=== PATIENT | male | born 1970 | race Caucasian/White ===

== ENCOUNTER 2018-09-26 23:42 | Inpatient (IN) ==
[2018-09-26] MEDS ORDERED: Piperacillin/Tazobactam 3.375 GM in Water for inj. (sterile) 20 ML 20 ML IVP ONE (23:56)
[2018-09-27 00:34] LABS: Basophils # 0.1 K/mcL (0.0-0.2); Basophils % 0.3 %; Eosinophils # 0.3 K/mcL (0.0-0.6); Eosinophils % 1.6 %; Hemoglobin 12.9 g/dL (12.9-16.9); Immature Granulocytes % 0.4 % (0-4); Lymphocytes % 12.8 %; Mean Corpuscular HGB Conc 33.9 g/dL (31.6-35.5); Mean Corpuscular Hemoglobin 30.8 pg (28.0-33.3); Mean Corpuscular Volume 90.7 fL (83.0-100.0); Mean Platelet Volume 9.6 fL (9.4-12.4); Monocytes # 0.9 K/mcL (0.0-1.3); Monocytes % 5.6 %; Neutrophils # 12.6 K/mcL (1.6-8.9); Platelet Count 304 K/mcL (140-400); Red Blood Count 4.19 M/mcL (4.19-5.50); Red Cell Distribution Width 12.6 % (11.5-14.5); Segmented Neutrophils % 79.3 %; White Blood Count 15.9 K/mcL (4.3-11.1)
--- NOTE | 2018-09-27 00:36 | Emergency Department Note ---
Disposition Clinical Impression: Toe infection Fever Qualifiers: Fever type: unspecified Qualified Code(s): R50.9 - Fever, unspecified Disposition: Admitted As Inpatient Condition: Fair Forms: ED Satisfaction Letter Time of Disposition: 00:38 General Adult HPI - General Chief complaint: ED Extremity Injury, Lower Stated complaint: MRSA Time Seen by Provider: 09/26/18 23:43 Source: patient, EMS Mode of arrival: EMS Limitations: no limitations Nursing Notes Reviewed: Yes Vital Signs Reviewed: Yes - History of Present Illness HPI Narrative: 48-year-old male in no significant past medical history presenting to the emergency department chief complaint of toe infection. Patient states for the past 3 weeks he has had worsening second digit on the left foot infection. He first noticed it and covered it with antibiotic cream but it progressively got worse and more swollen and more painful. Patient states today he started having chills and not feeling well and that is what brought him in. Denies any history of diabetes or previous skin infection. 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 Denies any trauma to the area. Pain Scale: 8 All systems ED: reviewed and negative except as stated. Constitutional: Reports: fever, chills Eyes: Reports: as per HPI ENT ED: Reports: as per HPI Cardiovascular: Denies: chest pain Respiratory: Denies: dyspnea Gastrointestinal: Denies: abdominal pain Genitourinary: Reports: as per HPI Musculoskeletal: Reports: as per HPI Integumentary: Reports: as per HPI Neurological: Reports: as per HPI Psychiatric: Reports: as per HPI Endocrine: Reports: as per HPI Hematological/Lymphatic: Reports: as per HPI Allergic/Immunologic: Reports: as per HPI Past Medical History - Past Medical History Attestation: Yes The following information was validated with the patient. Medical history: Reports: no medical history Psychiatric history: Reports: no psych history - Social History Smoking Status: Never smoker Smokeless Tobacco Status: No Alcohol use: Reports: none Drug use: Reports: none Physical Exam - General Limitations: no limitations General appearance: alert, in no apparent distress - Head Head exam: atraumatic, normocephalic, normal inspection - Eye Eye exam: Absent: scleral icterus - ENT ENT exam: mucous membranes moist - Neck Neck exam: Present: full ROM - Chest Chest inspection: Present: symmetric chest wall rise - Respiratory Respiratory exam: Present: normal lung sounds bilaterally. Absent: respiratory distress, wheezes - Cardiovascular Cardiovascular exam: Present: regular rate, normal rhythm, normal heart sounds - Abdominal Exam Abdominal exam: Present: soft, Non-Tender. Absent: distention, guarding, rebound - Extremities Exam Extremities exam: Present: other (Left second toe swollen, red tender to touch. Superficial ulcerations to the dorsal aspect and the medial aspect of the toe. No crepitus) - Neurological Exam Neurological exam: Present: alert, oriented X3 - Psychiatric Psychiatric exam: Present: normal affect - Skin Skin exam: Present: warm Course Course Narrative: 48-year-old male presenting for a toe infection. In the room is alert and oriented 3. He is febrile but hemodynamically stable. Physical exam is significant for a left second toe that is red, swollen, tender to touch with superficial ulcerations. Concern for sepsis due to this infectious etiology. At this time will obtain laboratory analysis including lactic acid, blood cultures along with an x-ray of the foot. Disposition will be admission pending laboratory analysis. Patient agrees with this plan. We will also start him with fluid resuscitation and antibiotics. - Reevaluation(s) Reevaluation #1: Patient with leukocytosis. All other labs pending at this time. We will plan to send the patient out to the night team Dr. Montez. Patient remains alert and oriented 3 and hemodynamically stable. Vital Signs Temperature 100.6 F H 09/26/18 23:45 Pulse Rate 88 09/26/18 23:45 Respiratory Rate 18 09/26/18 23:45 Blood Pressure 176/96 09/26/18 23:45 O2 Sat by Pulse Oximetry 99 09/26/18 23:45 Temperature 100.6 F H 09/26/18 23:45 Pulse Rate 88 09/26/18 23:45 Respiratory Rate 18 09/26/18 23:45 Blood Pressure 176/96 09/26/18 23:45 O2 Sat by Pulse Oximetry 99 09/26/18 23:45 Oxygen Delivery Oxygen Delivery Room Air Medical Decision Making - Lab Data Result diagrams: 09/27/18 00:14 09/27/18 00:14 Attestation Statement - Attestation Attestation: I, Marcos Montez, examined this patient and my medical decision-making was reviewed with the [employer]/PA/Advanced Practice Nurse/Resident Physician. I agree with the documented findings, disposition and treatment plan as described except to the extent set forth below. 48-year-old male presents presents emergency Department with concerns of infection to the left second toe. Patient states he developed a blister which burst, he had been using antibacterial ointment on it for almost a week, and improved mildly and and then worsened quickly. 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 Patient denies fever, chills however he has generalized malaise. The left foot is significantly tender to palpation, the left second toe is erythematous with blister formation and purulent drainage. There is no streaking proximally on the foot. Patient is afebrile. He will be admitted to the hospital for further care and evaluation with IV antibiotics. He will require podiatry consult for further care and evaluation.
--- NOTE | 2018-09-27 00:51 | Emergency Department Note ---
Disposition Clinical Impression: Septic joint Qualifiers: Septic arthritis location: foot Septic arthritis organism: due to unspecified organism Laterality: left Qualified Code(s): M00.9 - Pyogenic arthritis, unspecified Disposition: Admitted As Inpatient Condition: Good Referrals: NONE,PCP [Primary Care Provider] - Forms: ED Satisfaction Letter Time of Disposition: 00:51 General Adult HPI - General Chief complaint: ED Extremity Injury, Lower Stated complaint: MRSA Time Seen by Provider: 09/26/18 23:43 Source: patient, EMS Mode of arrival: EMS Limitations: no limitations - History of Present Illness Pain Scale: 8 - Related Data Allergies Allergy/AdvReac Type Severity Reaction Status Date / Time No Known Allergies Allergy Verified 09/27/18 01:09 Constitutional: Reports: fever, chills Eyes: Reports: as per HPI ENT ED: Reports: as per HPI Cardiovascular: Denies: chest pain Respiratory: Denies: dyspnea Gastrointestinal: Denies: abdominal pain Genitourinary: Reports: as per HPI Musculoskeletal: Reports: as per HPI Integumentary: Reports: as per HPI Neurological: Reports: as per HPI Psychiatric: Reports: as per HPI Endocrine: Reports: as per HPI Hematological/Lymphatic: Reports: as per HPI Allergic/Immunologic: Reports: as per HPI Past Medical History - Past Medical History Medical history: Reports: no medical history Psychiatric history: Reports: no psych history - Social History Smoking Status: Never smoker Smokeless Tobacco Status: No Alcohol use: Reports: none Drug use: Reports: none Physical Exam - General Limitations: no limitations General appearance: alert, in no apparent distress Course - Reevaluation(s) Reevaluation #1: accepted sign out from Dr. Marcos davis. Plan is to followu on XR and then admit to medicine for Toe cellulitis Time: 00:50 - Consultations Consultation #1: discusssed case with Dr. Wade and he would like to have an MRI ordered and will see patinet in consult with admission to medicine Time: 01:53 Consultation #2: Resident Dr. Arvizu spoke with Dr. vázquez and he has been accepted to medicine Time: 02:15 Vital Signs Temperature 100.6 F H 09/26/18 23:45 Pulse Rate 88 09/26/18 23:45 Respiratory Rate 18 09/26/18 23:45 Blood Pressure 176/96 09/26/18 23:45 O2 Sat by Pulse Oximetry 99 09/26/18 23:45 Temperature 100.6 F H 09/26/18 23:45 Pulse Rate 93 09/27/18 01:46 Respiratory Rate 18 09/27/18 01:46 Blood Pressure 149/86 09/27/18 01:46 O2 Sat by Pulse Oximetry 98 09/27/18 01:46 Oxygen Delivery Oxygen Delivery Room Air Medical Decision Making - Lab Data Result diagrams: 09/27/18 00:14 09/27/18 00:14 Lab Results 09/27/18 09/27/18 09/27/18 Range/Units 00:14 00:14 00:14 WBC 15.9 H (4.3-11.1) K/mcL RBC 4.19 (4.19-5.50) M/mcL Hgb 12.9 (12.9-16.9) g/dL Hct 38.0 (37.5-50.1) % MCV 90.7 (83.0-100.0) fL MCH 30.8 (28.0-33.3) pg MCHC 33.9 (31.6-35.5) g/dL RDW 12.6 (11.5-14.5) % Plt Count 304 (140-400) K/mcL MPV 9.6 (9.4-12.4) fL Immature Gran % 0.4 (0-4) % Seg Neutrophils % 79.3 % Lymphocytes % 12.8 % Monocytes % 5.6 % Eosinophils % 1.6 % Basophils % 0.3 % Neutrophils # 12.6 H (1.6-8.9) K/mcL Lymphocytes # 2.0 (0.6-4.6) K/mcL Monocytes # 0.9 (0.0-1.3) K/mcL Eosinophils # 0.3 (0.0-0.6) K/mcL Basophils # 0.1 (0.0-0.2) K/mcL Sodium 136 (136-145) mEq/L Potassium 3.9 (3.5-5.1) mEq/L Chloride 101 (98-107) mEq/L Carbon Dioxide 25 (23-29) mEq/L BUN 14 (6-20) mg/dL Creatinine 0.78 (0.70-1.30) mg/dL Est GFR ( Amer) > 60 (> 60) Est GFR (Non-Af Amer) > 60 (> 60) BUN/Creatinine Ratio 18 (6-26) Glucose 178 H (70-105) mg/dL Calculated Osmolality 287 (280-300) Lactic Acid 2.4 H (0.5-2.2) mmol/L Calcium 9.1 (8.6-10.3) mg/dL Total Bilirubin 0.2 L (0.3-1.0) mg/dL Direct Bilirubin 0.0 (0.0-0.2) mg/dL Indirect Bilirubin 0.2 (0.0-1.2) mg/dL AST 15 (13-39) Units/L ALT 10 (7-52) Units/L Alkaline Phosphatase 97 (34-104) Units/L Serum Total Protein 6.9 (6.4-8.9) g/dL Albumin 4.1 (3.5-5.7) g/dL Globulin 2.8 (2.4-3.5) g/dL Albumin/Globulin Ratio 1.5 (1.1-2.2)
[2018-09-27 00:58] LABS: Alanine Aminotransferase 10 Units/L (7-52); Albumin 4.1 g/dL (3.5-5.7); Albumin/Globulin Ratio 1.5 (1.1-2.2); Alkaline Phosphatase 97 Units/L (34-104); Aspartate Amino Transferase 15 Units/L (13-39); BUN/Creatinine Ratio 18 (6-26); Bilirubin,Indirect 0.2 mg/dL (0.0-1.2); Bilirubin,Total 0.2 mg/dL (0.3-1.0); Blood Urea Nitrogen 14 mg/dL (6-20); Calcium 9.1 mg/dL (8.6-10.3); Carbon Dioxide 25 mEq/L (23-29); Chloride 101 mEq/L (98-107); Globulin 2.8 g/dL (2.4-3.5); Glucose 178 mg/dL (70-105); Osmolality,Calculated 287 (280-300); Potassium 3.9 mEq/L (3.5-5.1); Sodium 136 mEq/L (136-145); Total Protein 6.9 g/dL (6.4-8.9); eGFR For African Americans > 60 (> 60); eGFR For Non-African Americans > 60 (> 60)
[2018-09-27] MEDS: 0.9 % Sodium Chloride 1,000 ML IVC SCH ×3 (01:16→09:22)
[2018-09-27] MEDS ORDERED: *HR* FentaNYL (PF) 100 MCG/2 ML VIAL IVP ONE (01:52)
[2018-09-27] MEDS ORDERED: Naloxone 0.4 MG/ML INJ IVP PRN (06:45)
[2018-09-27] MEDS ORDERED: 0.9 % Sodium Chloride 1,000 ML IVC SCH (06:45)
--- NOTE | 2018-09-27 07:54 | Internal Med History&Physical ---
Date of Encounter: 09/27/18 Time of Encounter: 06:10 Internal Medicine - H&P: HPI Chief complaint: Septic joint Admitted From: Emergency Dept History of present illness: Mr. Zapien is a 48 year old male Patient presented to the ER with pain in his left foot for 3 weeks. 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 He states that he developed a blister on the 2nd toe of his left foot that he was treating at home with an ointment. He says that it progressively worsened and became swollen and painful. He has never had symptoms like this before. He came to the ER for further evaluation. In the ER his initial vital signs revealed a temperature of 100.6. CBC showed a white count of 15.9. BMP demonstrated a blood sugar or 178. Initial lactic acid was 2.4. Foot x-ray was ordered and revealled possible septic joint but no osseous destruction suggesting osteomyelitis. Blood cultures were drawn, and patient was started on vancomycin and zosyn. Podiatry was called and will see the patient in the morning. Recommended MRI of the foot. Patient was admitted to the hospital for further management. Upon my evaluation patient is resting comfortably in the hospital room in no acute distress. He denies chest pain, abdominal pain and diarrhea. He has had some nausea and vomiting but not since arrival. He denies history of diabetes. He states that his father had from cirrhosis of the liver, and his moter had a brain tumor. Diabetes does run in his family. He is a full code. Past Med Surg Social Fam HX - Past Medical History Medical history: no medical history Additional medical history: back pain Psychiatric history: no psych history - Past Surgical History Surgical History: cholecystectomy, tonsillectomy Additional surgical history: lumbar discectomy (2005), broken toes - Social History Smoking Status: Current every day smoker Packs per day: half pack Smokeless Tobacco Status: No Alcohol use: none Drug use: none - Family History Father Living Status: Age at : 36 Cause of : cirrhosis Mother Living Status: Age at : 53 Cause of : brain ancer Hx Family Cancer: Yes (brain cancer) Internal Medicine - H&P: Meds 3 Allergy/AdvReac Type Severity Reaction Status Date / Time No Known Allergies Allergy Verified 09/27/18 01:09 All Systems PM: A 10-system review of systems was performed and is negative for pertinent findings except as documented above in the HPI. - Constitutional Vitals: Temp Pulse Resp BP Pulse Ox 98.9 F 78 16 153/86 98 09/27/18 06:59 09/27/18 06:59 09/27/18 06:59 09/27/18 06:59 09/27/18 06:59 General appearance: Present: cooperative, A&O X 3, pleasant, no acute distress, answers questions appropriately Exam: - - Head Head exam: Present: normal inspection - Eye Eye exam: Present: EOMI, normal appearance - Respiratory Respiratory exam: Present: CTAB. Absent: rales, respiratory distress, rhonchi, wheezes - Cardiovascular Cardiovascular exam: Present: RRR. Absent: diastolic murmur, systolic murmur - GI/Abdominal GI/Abdominal exam: Present: normal bowel sounds, soft. Absent: tenderness - Extremities Exam Extremities exam: Present: pedal edema, warm, radial pulses palpable and symmetrical. Absent: tenderness Additional comments: Left foot swollen to mid lower leg. 2nd toe swollen with 1cm ulceration on dorsal aspect. Toe purple in color. Decreased sensation with palpation. dust box tender to mid-foot - Neurological Exam Neurological exam: Present: no focal deficits, strengths equal and symetr throughout. Absent: motor sensory deficit, facial droop, speech deficit - Skin Skin exam: Present: dry, normal color, warm Internal Med - H&P Results - Labs CBC & Chem 7: 09/27/18 00:14 09/27/18 00:14 Labs: Short CBC 09/27/18 Range/Units 00:14 WBC 15.9 H (4.3-11.1) K/mcL Hgb 12.9 (12.9-16.9) g/dL Hct 38.0 (37.5-50.1) % Plt Count 304 (140-400) K/mcL Neutrophils # 12.6 H (1.6-8.9) K/mcL BMP 09/27/18 00:14 Sodium 136 Potassium 3.9 Chloride 101 Carbon Dioxide 25 BUN 14 Creatinine 0.78 Glucose 178 H Calcium 9.1 Liver Function 09/27/18 Range/Units 00:14 Total Bilirubin 0.2 L (0.3-1.0) mg/dL Direct Bilirubin 0.0 (0.0-0.2) mg/dL AST 15 (13-39) Units/L ALT 10 (7-52) Units/L Alkaline Phosphatase 97 (34-104) Units/L Albumin 4.1 (3.5-5.7) g/dL - Impressions ITS Impressions Foot X-Ray 09/27/18 23:57 IMPRESSION: 2nd toe soft tissue swelling. No underlying soft tissue gas, radiopaque foreign body, or osseous destruction to suggest osteomyelitis however, there is asymmetric widening of the DIP joint compared with other joints, raising concern for septic joint. D/ / Lee Devlin / Lee Devlin Interpreting Provider: Lee Devlin - Assessment and Plan (1) Septic joint Current Visit: Yes Status: Acute Assessment and plan: Left 2nd toe showed widening at the DIP joint on x-ray. Podiatry consulted from the ER, will see in the morning. Requested MRI. Patient initially ferile with temp of 100.6, and had a white count of 15.9. Lactic acid also initially elevated at 2.4. Lactic acid improved with IV fluids, patient started on antibiotics in the ER. MRI ordered from ER, follow up results Follow up podiatry recommendations Continue IV antibiotics Follow up culture results. Qualifiers: Septic arthritis location: foot Septic arthritis organism: due to unspecified organism Laterality: left Qualified Code(s): M00.9 - Pyogenic arthritis, unspecified (2) Hyperglycemia Current Visit: Yes Status: Acute Assessment and plan: Elevated sugar on initial labs. Patient denies history of diabetes. A1c in the morning (3) DVT prophylaxis Current Visit: Yes Status: Acute Assessment and plan: SCDs - Time Spent With Patient Total time spent is greater than 50% in coordination of care (as documented) at patient's floor/unit and/or counseling patient: Greater than 35 minutes
--- NOTE | 2018-09-27 09:18 | Podiatry Consult Note ---
Date of Encounter: 09/27/18 Time of Encounter: 09:15 Assessment and Plan (1) Infected blister of second toe of left foot Current visit: Yes Status: Acute Patient evaluated and treated. He has a left 2nd toe infection. MRI completed of the left foot today. Will wait for radiology read to see if there is evidence of osteomyelitis. Given the amount of soft tissue infection, he will need at least an I&D and possible amputation of the digit. ESR and CRP ordered. Will plan for I&D tomorrow for infection source control. Patient was made NPO at midnight to night. Risks, benefits, and expected post operative course reviewed for the procedure. He will sign consent prior to the procedure as he would like to think about his surgical options today. Continue broad spectrum IV antibiotics for now. Qualifiers: Qualified Code(s): S90.425A - Blister (nonthermal), left lesser toe(s), initial encounter; L08.9 - Local infection of the skin and subcutaneous tissue, unspecified History of Present Illness Chief complaint: left 1st toe wound infection HPI: Mr. Zapien is a 48 year old male admitted for left 2nd toe infection. He reports 4 weeks ago he developed a blister from his work shoes. He walks to work which causes strain on his feet. He treated the blister with triple antibiotic and bandage. The wound worsened and the toe turned red and swollen. He reported fevers and chills when he came to the hospital. he reports sharp pain to the toe. Past Med Surg Social Fam HX - Past Medical History Medical history: no medical history Additional medical history: back pain Psychiatric history: no psych history - Past Surgical History Surgical History: cholecystectomy, tonsillectomy Additional surgical history: lumbar discectomy (2005), broken toes - Social History Smoking Status: Current every day smoker Packs per day: half pack Smokeless Tobacco Status: No Alcohol use: none Drug use: none - Family History Father Living Status: Age at : 36 Cause of : cirrhosis Mother Living Status: Age at : 53 Cause of : brain ancer Hx Family Cancer: Yes (brain cancer) Medications and Allergies Allergy/AdvReac Type Severity Reaction Status Date / Time No Known Allergies Allergy Verified 09/27/18 01:09 All Systems Reviewed: The remainder of the systems were reviewed and are negative Physical Exam - Constitutional Vitals: Temp Pulse Resp BP Pulse Ox 98.9 F 78 16 153/86 98 09/27/18 06:59 09/27/18 06:59 09/27/18 06:59 09/27/18 06:59 09/27/18 06:59 Exam: Alert, oriented x3, mild distress Vascular: pulses palpable bilateral foot. Capillary refill brisk to all toes. Skin temperature warm to touch left 2nd toe. Pedal hair present. Dermatology: left 2nd toe ulcer 1cm diameter at medial aspect of DIPJ. Erythema and edema of entire digits. Mild drainage from wound. Musculoskeletal: Tenderness with palpation left 2nd toe. No pain with compression of calf. Neuro: sensations intact to light touch bilateral lower extremity. Results - Labs Result Diagrams: 09/27/18 00:14 09/27/18 00:14 Labs: Abnormal lab results WBC 15.9 K/mcL (4.3-11.1) H 09/27/18 00:14 12.6 K/mcL (1.6-8.9) H 09/27/18 00:14 Glucose 178 mg/dL (70-105) H 09/27/18 00:14 Lactic Acid 2.4 mmol/L (0.5-2.2) H 09/27/18 00:14 0.2 mg/dL (0.3-1.0) L 09/27/18 00:14 H & H 09/27/18 Range/Units 00:14 Hgb 12.9 (12.9-16.9) g/dL Hct 38.0 (37.5-50.1) % All other labs normal. Consult Discharge Plan - Plan Referrals: NONE,PCP [Primary Care Provider] -
[2018-09-27] MEDS: Piperacillin/Tazobactam 3.375 GM in 0.9 % Sodium Chloride Mini Bag 100 ML IVPB SCH ×2 (09:24→16:43)
[2018-09-27 10:32] LABS: Estimated Average Glucose 134 mg/dl; Hemoglobin A1C 6.3 %
[2018-09-27 10:43] LABS: Prothrombin Time 11.2 Seconds (9.4-12.1)
[2018-09-27 13:28] LABS: Bilirubin,Urine Negative (Negative); Blood,Urine Negative (Negative); Clarity,Urine Clear (Clear); Color,Urine Yellow (Yellow); Glucose,Urine (UA) Normal (Normal); Ketones,Urine Negative (Negative); Leukocyte Esterase,Urine Negative (Negative); Nitrite,Urine Negative (Negative); PH,Urine 6.5 pH Units (5.0-8.0); Protein,Urine Negative (Neg-Trace); Specific Gravity,Urine 1.017 (1.010-1.025); Urobilinogen,Urine Normal (Normal)
--- NOTE | 2018-09-27 15:38 | Event Note ---
Date of Encounter: 09/27/18 Time of Encounter: 15:32 48 y/o male with no significant PMH presented to [facility] on 09/27/18 with complaints of left foot second digit infection. He was found to have possible osteomyelitis and was hospitalized for IV ATB and podiatry evaluation. Patient was seen earlier today by nocturnal hospitalist. Seen and examined at bedside by myself. Tired and drowsy at time of my exam. He does have some left foot discomfort. He is aware of surgical intervention per podiatry. Osteomyelitis/septic arthritis: To left foot second digit per MRI. Continue IV Vanco and Zosyn. NPO at midnight. Podiatry planing at least I&D and possible amputation. DVT prophylaxis: Heparin
[2018-09-28] MEDS: Piperacillin/Tazobactam 3.375 GM in 0.9 % Sodium Chloride Mini Bag 100 ML IVPB SCH ×3 (01:40→17:43)
--- NOTE | 2018-09-28 07:23 | Podiatry Progress Note ---
Date of Encounter: 09/28/18 Time of Encounter: 07:20 - Assessment and Plan (1) Infected blister of second toe of left foot Current Visit: Yes Status: Acute Patient evaluated and treated. He has a left 2nd toe infection. MRI reviewed with the patient which shows cellulitis and marrow edema that likely represents osteomyelitis of the left 2nd toe middle and distal phalanges. Given the amount of soft tissue infection and concern for osteomyelitis, he will need at least an I&D and possible amputation of the digit. We discussed treatment options for suspected osteomyelitis including bone culture with course of IV antibiotics vs toe amputation. He is agreeable to toe amputation if needed. Surgical consent signed. Risks, benefits, and expected post operative course reviewed for the procedure. Continue broad spectrum IV antibiotics for now and will take cultures in the OR this AM. Qualifiers: Encounter type: subsequent encounter Qualified Code(s): S90.425D - Blister (nonthermal), left lesser toe(s), subsequent encounter; L08.9 - Local infection of the skin and subcutaneous tissue, unspecified Subjective Principal diagnosis: left 2nd toe infection Interval history: Patient feeling better today. Plans for I&D left 2nd toe with possible amputation of digit. He is NPO. Objective - Vital Signs Vital Signs: Vital Signs Temp Pulse Resp BP Pulse Ox 09/28/18 03:44 98.1 F 71 17 153/93 95 09/28/18 00:15 98.4 F 75 17 136/80 95 09/27/18 19:07 98.7 F 78 17 158/91 100 09/27/18 15:51 97.6 F 70 17 133/83 94 09/27/18 11:10 98.3 F 68 18 128/80 95 Intake and Output 09/27/18 09/27/18 09/28/18 15:59 23:59 07:59 Intake Total 1790 / 3160 100 / 3160 Output Total 700 / 700 Balance 1090 / 2460 100 / 2460 Intake: IV Fluids 1550 / 2920 100 / 2920 0.9 % Sodium Chloride 1,000 ML 1200 / 2200 @ 125 mls/hr IVC .Q8H [facility] Rx#: [id number] Zosyn 3.375 GM In 0.9 % Sodium 100 / 200 100 / 200 Chloride (Mini-Bag +) 100 ML @ 25 mls/hr IVPB Q8H [facility] Rx#: [id number] Vancocin 1,500 MG In 0.9 % 250 / 250 Sodium Chloride 250 ML @ 167 mls/hr IVPB Q12H [facility] Rx#: [id number] Oral 240 / 240 Output: Urine 700 / 700 Other: Meal Breakfast Percent of Meal Consumed 100% # Voids 1 1 Weight 96.615 kg Blood Glucose* 131 Patient Weight 09/28/18 23:59 Weight 96.615 kg - Exam Exam: Alert, oriented x3, mild distress Vascular: pulses palpable bilateral foot. Capillary refill brisk to all toes. Skin temperature warm to touch left 2nd toe. Pedal hair present. Dermatology: left 2nd toe ulcer 1cm diameter at medial aspect of DIPJ. Erythema and edema of entire digit. Mild drainage from wound. Musculoskeletal: Tenderness with palpation left 2nd toe. No pain with compression of calf. Neuro: sensations intact to light touch bilateral lower extremity. - Lab Result Diagrams: 09/27/18 00:14 09/27/18 00:14 Labs: Abnormal lab results WBC 15.9 K/mcL (4.3-11.1) H 09/27/18 00:14 12.6 K/mcL (1.6-8.9) H 09/27/18 00:14 ESR 33 mm/hr (0-10) H 09/27/18 09:38 Glucose 178 mg/dL (70-105) H 09/27/18 00:14 6.3 % (-5.6) H 09/27/18 09:38 Lactic Acid 2.4 mmol/L (0.5-2.2) H 09/27/18 00:14 0.2 mg/dL (0.3-1.0) L 09/27/18 00:14 69 mg/L (Less than 10) H 09/27/18 09:38 Microbiology, Last 48 Hours 09/27/18 00:45 Blood Culture - Preliminary Peripheral Venipuncture Culture is incubating and being continuously monitored for growth. Final report to follow. 09/27/18 00:14 Blood Culture - Preliminary Peripheral Venipuncture Culture is incubating and being continuously monitored for growth. Final report to follow. Consult Discharge Plan - Plan Referrals: NONE,PCP [Primary Care Provider] -
[2018-09-28] MEDS ORDERED: Famotidine 20 MG/2 ML VIAL IVP ONE (09:56)
[2018-09-28] MEDS ORDERED: Albuterol 2.5 MG/3 ML NEBULIZER IH ONE (09:57)
[2018-09-28] MEDS ORDERED: Acetaminophen IV 1,000 MG/100 ML INFUS..BTL IVPB ONE (09:57)
[2018-09-28] MEDS ORDERED: Ringers Solution, Lactated 1,000 ML IVC SCH (10:00)
--- NOTE | 2018-09-28 10:00 | Anesthesia Evaluation PreOp ---
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 HX Other Medical History: Denies Any Significant HX Anesthesia History: No Prior Anesthetic Complications Alcohol Use: none Drug use: none Medications and Allergies Allergy/AdvReac Type Severity Reaction Status Date / Time No Known Allergies Allergy Verified 09/27/18 01:09 - Meds/Allergy Pre-op Review Medications Reviewed: Yes Allergies Reviewed: Yes Beta Blockers on Current Med List: No Anesthesia Results - Labs 09/27/18 00:14 09/27/18 00:14 Anesthesia Exam O2 Sat Weight 96.615 kg Weight 94.6 kg O2 Sat by Pulse Oximetry 97 O2 Sat by Pulse Oximetry 95 O2 Sat by Pulse Oximetry 95 O2 Sat by Pulse Oximetry 100 O2 Sat by Pulse Oximetry 94 O2 Sat by Pulse Oximetry 95 Vital Signs Temp Pulse Resp BP Pulse Ox 100.6 F H 88 18 176/96 99 09/26/18 23:45 09/26/18 23:45 09/26/18 23:45 09/26/18 23:45 09/26/18 23:45 Height: 5'10 Weight: 213 lbs NPO (# of Hours): MN Pain Scale: 0 - HEENT Pupil (Motor): Pupils equal, EOMI Mallampati: II Oral Opening: Greater than 3 - SENIOR TECHNICAL EDITOR LOC: Oriented SENIOR TECHNICAL EDITOR Sensory: Normal: RUE, LUE, RLE, LLE, Face - Cardiac Rhythm: Regular Murmur: None JVD: No Carotid Bruit: No - Pulmonary Breath Sounds: bilateral Clear Respiratory Effort: Symmetrical Anesthesia Assess/Plan ASA Score: 2 Level of consciousness: Cooperative, Oriented Anesthetic Plan: MAC Reason for No Neuroaxial/Regional Block: Patient refusal Autologous Blood: No Monitoring Plan: Standard Monitors Recovery Plan: PACU (Discussed MAC, possible GA, agrees to proceed)
[2018-09-28] MEDS ORDERED: *HR* Midazolam HCl 2 MG/2 ML VIAL ONE (10:14)
[2018-09-28] MEDS ORDERED: *HR* FentaNYL (PF) 100 MCG/2 ML VIAL ONE (10:14)
[2018-09-28] MEDS ORDERED: *HR* Propofol 200 MG/20 ML VIAL IVP ONE (10:15)
[2018-09-28] MEDS ORDERED: Lidocaine -MPF 2% 2 ML VIAL ONE (10:15)
[2018-09-28] MEDS ORDERED: Lidocaine 1% 20 ML MDV ONE (10:51)
[2018-09-28] MEDS ORDERED: Propofol 500 MG/50 ML INFUS..BTL ONE (11:32)
--- NOTE | 2018-09-28 11:51 | Anesthesia Evaluation Post Op ---
Date of Encounter: 09/28/18 Time of Encounter: 12:00 - Vital Signs Vital Signs: Vital Signs/O2 Sat/Glucose, Most Current Resp BP Pulse Ox 09/28/18 10:12 16 121/82 95 - Lungs Lungs: Clear Ascult./Percussion - Airway Airway: Non-obstructed - Cardiovascular Regular Rate - Mental Status Mental Status: Alert & Oriented, Answers Appropriately - Pain Pain Scale: 0 - Nausea Vomiting Nausea Vomiting: Not Present - Hydration Hydration: NPO - Discharge PostOp Status: Transfer Patient to floor
--- NOTE | 2018-09-28 12:01 | Orthopedic Operative Note ---
Date of procedure: 09/28/18 Pre-op diagnosis: left 2nd toe infection, osteomyelitis Post-op diagnosis: same Procedure: 09/28/18 11:50 1. Left 2nd toe incision and drainage below fascia 2. Left partial 2nd toe amputation at proximal interphalangeal joint Implants: None Complications: None Anesthesia: MAC, local Surgeon: Dhruv Mccloud Was there an digital sales assistant present: No Estimated blood loss (cc): 1 Tourniquet Time (Minutes): 0 Specimen: Left 2nd toe wound culture, proximal phalanx bone culture, toe to pathology Condition: stable Disposition: floor Procedure in Detail: 09/28/18 11:52 INDICATIONS AND CONSENT Jaswant Zapien is a 48-year-old male who initially presented with left second toe wound infection that started as a non healing blister. MRI showed evidence of osteomyelitis at the middle and distal phalanx of the toe. Given his clinical picture of localized infection, nonviable soft tissue, and MRI evidence of bone infection, surgical intervention was warranted for infection source control. This would include incision and drainage of all nonviable soft tissue and bone, with possible partial second toe amputation. We discussed the option for bone culture with course of IV antibiotics vs amputation, and he elected to proceed with amputation if needed. We discussed the above procedures in detail. This included a discussion on the indications, contraindications, and possible complications including but not limited to: infection, non-healing wound, pain, swelling, bleeding, blood clots, heart complications, nerve injury, tendon injury, vascular injury, loss of limb, loss of life, and need for further surgery. We also reviewed the expected post operative course, including a discussion on the partial-weightbearing status after this procedure. He related understanding of our discussion regarding this surgery. All questions were answered to his satisfaction, and a proper written informed consent was obtained, signed, and placed in the chart. No guarantees were given, stated or implied, as to the outcome of this procedure. PROCEDURE IN DETAIL The patient was seen in the pre-operative holding area by Anesthesia, where he was consented for MAC with local block. The patient was then brought back to the operative suite and placed on the operating room table in the supine position. A sign-in was performed. MAC was then started per Anesthesia protocol. A well- padded pneumatic left ankle tourniquet was then placed but was not used for the procedure. Next, the left lower leg was scrubbed, prepped, and draped in the usual aseptic manner. A [place] Time-Out was performed, and all parties in the room agreed. A total of 5 mL of 1% lidocaine plain was injected to the left second toe. A rongeur and 15 blade was then used to sharply debride all nonviable soft tissue at the second toe. A wound culture was taken from the toe. After debridement of all nonviable soft tissue, it was determined that the soft tissue deficit would not allow for adequate healing over the exposed bone, especially given the fact that there was concern for underlying bone infection. It was determined that a partial second toe amputation was warranted. A 15 blade was then used to disarticulate the left second toe at the proximal interphalangeal joint. The bone at the proximal phalanx appeared hard, viable, and healthy. The wound was then irrigated with 3 L of normal saline using cysto tubing. A clean rongeur was used to obtain a bone culture from the proximal phalanx to confirm adequate resection of infected bone. The specimen was sent to micro. Given the edema and cellulitis at the soft tissue of the second toe stump, it was determined that a staged procedure was appropriate in order to allow the soft tissue infection to resolve prior to any definitive closure. A single 2-0 nylon retention suture was then placed. A total of 5 mL of 0.5% Marcaine plain was then injected to the left forefoot. The wound was then dressed with Xeroform, 4 x 4's, Kerlix roll, and EMILIE wrap. Capillary refill time of the toes on the left foot was also noted to be brisk at this time. A sign-out was performed. The patient tolerated anesthesia and the procedure well, and was transferred to PAC-U with vital signs stable and vascular status intact to the left lower extremity. Needle and sponge counts were correct X 2 at the end of the case. Dr. Dhruv Mccloud was present, scrubbed, and participated in all vital aspects of the procedure. After a brief stay in PAC-U, the patient will be omitted back to the floor for continued monitoring. Will plan for repeat incision and drainage with delayed primary closure once the soft tissue becomes more viable, or a more proximal amputation could be warranted. Will follow up on wound and proximal bone cultures and will tailor antibiotics based on these cultures. 09/28/18 12:02
[2018-09-28] MEDS ORDERED: Naloxone 0.4 MG/ML INJ IVP PRN (12:25)
[2018-09-28 14:52] LABS: Hemoglobin 13.1 g/dL (12.9-16.9); Mean Corpuscular HGB Conc 32.8 g/dL (31.6-35.5); Mean Corpuscular Hemoglobin 30.6 pg (28.0-33.3); Mean Corpuscular Volume 93.5 fL (83.0-100.0); Mean Platelet Volume 9.4 fL (9.4-12.4); Platelet Count 294 K/mcL (140-400); Red Blood Count 4.28 M/mcL (4.19-5.50); Red Cell Distribution Width 12.9 % (11.5-14.5); White Blood Count 11.3 K/mcL (4.3-11.1)
[2018-09-28] MEDS: Ringers Solution, Lactated 1,000 ML IVC SCH (15:08)
[2018-09-28 15:11] LABS: Alanine Aminotransferase 9 Units/L (7-52); Albumin 3.7 g/dL (3.5-5.7); Albumin/Globulin Ratio 1.4 (1.1-2.2); Alkaline Phosphatase 71 Units/L (34-104); Aspartate Amino Transferase 11 Units/L (13-39); BUN/Creatinine Ratio 13 (6-26); Bilirubin,Total 0.4 mg/dL (0.3-1.0); Blood Urea Nitrogen 9 mg/dL (6-20); Calcium 9.1 mg/dL (8.6-10.3); Carbon Dioxide 26 mEq/L (23-29); Chloride 104 mEq/L (98-107); Globulin 2.7 g/dL (2.4-3.5); Glucose 117 mg/dL (70-105); Osmolality,Calculated 284 (280-300); Potassium 4.1 mEq/L (3.5-5.1); Sodium 137 mEq/L (136-145); Total Protein 6.4 g/dL (6.4-8.9); eGFR For African Americans > 60 (> 60); eGFR For Non-African Americans > 60 (> 60)
--- NOTE | 2018-09-28 17:50 | Internal Med Progress Note ---
Hospitalist Progress Note - Encounter Date of Encounter: 09/28/18 Time of Encounter: 17:00 - Subjective Interval History: Patient is assessed at the bedside he is a new patient today. Review of his chart and [id number] assessment have been completed. Patient is just returned from surgical procedure of amputation of the left second PIP joint of the ph alanx. He was originally taken to surgery for I&D of abscess and cellulitis of the second left toe upon further examination during the procedure it was found that he had osteomyelitis and nonviable bone tissue of the PIP joint down to the tip of the toe and amputation was required. Patient is sitting upright in the bed in no acute distress he is however a bit aggravated and verbalizes that he might just "bookit" out of here. He states that he has not been told any information about the procedure he just underwent and he feels that he needs to return to work within the next 4 days. 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 He states that originally the cellulitis occurred due to a blister from walking 7 miles back to the long term house. He continued to become infected and he finally he due to pain and infection he did seek treatment here at the ED. Denies any traumatic event that would have c aused trauma to the toe other than just walking today he underwent amputation at the PIP joint of the second toe there is a single suture holding the balloon clamps there was no closure of the wound amputation flap was not created due to swelling of the soft tissue and infection. Review of the postop procedure note shows that there is plans for a second surgical procedure to close the amputation wound after receiving IV antibiotics and having better results from decreased infection. After explanation of the procedure to the patient that he has experienced and recommendations for him not to leave patient did become less agitated and is willing to stay for 1-2 more days at this point to follow-up with the surgeon - Exam Vitals: Temp Pulse Resp BP Pulse Ox 97.8 F 58 15 132/84 98 09/28/18 16:06 09/28/18 16:06 09/28/18 16:06 09/28/18 16:06 09/28/18 16:06 Exam: General: Patient is alert and oriented 4 in no acute distress sitting upright in the bed [facility] neck is supple negative for any thyroidomegaly or swellings Respiratory: Lungs are clear to auscultation all babin ANP negative for wheeze rales or rhonchi heart: S1-S2 no murmur gallop rub Abdomen: Soft bowel sounds 4 no masses negative for any rebound Extremities: Upper extremities no deformities. Range of motion of upper arms and hands and wrist Lower extremity surgical dressings are in place on the left foot there appears to be a small amount of bright red bleeding from the second plalanx amputation site capillary refill on the great toe is less than 2 seconds toe is warm and pink, patient does not appear to be in significant pain at the current time. Right lower extremity intact, no deformity noted pedal pulse 2+ Neuro: No neurological deficits are noted Psych: Patient is alert and oriented 4 shows no delusional or hallucinatory ideations or features. Thought Processes are linear - Assessment and Plan (1) Septic joint Current Visit: Yes Status: Acute Assessment and Plan: s/p partial amputation of PIP joint 2nd phalanx with surgical dressing in place. Will monitor capillary refill, and for s/s of bleeding q4hr, To leave surgical dressing inpalce until seen per surgeon in AM. May have Utracet 50 mg q8h prn for pain Avoid excessive walking in room, May toilet at the bedside only . Peripheral pulses check every 4 hour dressing check for any signs or symptoms of excessive drainage or bleeding every 4 hours, vital signs postop every 4 hours 24 hours (2) DVT prophylaxis Current Visit: Yes Status: Acute Assessment and Plan: Per protocol continue DVT prophylaxis (3) Hyperglycemia Current Visit: Yes Status: Acute Assessment and Plan: Patient denies any history of hyperglycemia diabetes however blood glucose remains elevated with the highest jane of 178 yesterday today he was 131 and 117 after being nothing by mouth. This is consistent with the hyperglycemia potential for type 2 diabetes hemoglobin A1c was checked and he is mildly elevated at 6.3% we will continue to monitor blood glucose fasting. (4) Amputation toe Current Visit: Yes Status: Acute Assessment and Plan: Status post partial amputation of the left second toe at the PIP joint today. Followed by podiatry with a secondary closure of the flap and amputation in the near future. To continue per Zosyn and vancomycin IVP - Time Spent with Patient Total time spent is greater than 50% in coordination of care (as documented) at patient's floor/unit and/or counseling patient: less than 15 minutes Plan of Care Discussed with: patient Internal Medicine: Result - Labs CBC & Chem 7: 09/28/18 13:42 09/28/18 13:42 Labs: Short CBC 09/28/18 Range/Units 13:42 WBC 11.3 H (4.3-11.1) K/mcL Hgb 13.1 (12.9-16.9) g/dL Hct 40.0 (37.5-50.1) % Plt Count 294 (140-400) K/mcL BMP 09/28/18 13:42 Sodium 137 Potassium 4.1 Chloride 104 Carbon Dioxide 26 BUN 9 Creatinine 0.72 Glucose 117 H Calcium 9.1 Liver Function 09/28/18 Range/Units 13:42 Total Bilirubin 0.4 (0.3-1.0) mg/dL AST 11 L (13-39) Units/L ALT 9 (7-52) Units/L Alkaline Phosphatase 71 (34-104) Units/L Albumin 3.7 (3.5-5.7) g/dL - ABG Interpretation ABG results: PT/INR, D-dimer PT 11.2 Seconds (9.4-12.1) 09/27/18 09:38 - Diagnostic Studies Other Images Additional comments: MRI of the left foot There appears to be a small, shallow, open woundulcer along the medial aspect of the second digit at the level of the DIP joint with apparent sinus tract extending slightly deeper into the soft tissues. Associated subcutaneous edema and skin thickening to the second digit. Findings are compatible with cellulitis. No focal fluid collections noted on this noncontrast exam to suggest abscess. Abnormal bone bowles signal changes involving the second middle and to a lesser extent distal phalanges, along with trace joint effusion to the second DIP joint. Given the soft tissue abnormalities noted above, findings are highly concerning for osteomyelitis and septic arthritis. Borderline diffuse nonspecific subcutaneous edema to the foot, especially dorsally. Mild fatty atrophy and edema to some of the intrinsic musculature of the foot, especially the intraosseous muscle about the second and third and to a lesser extent fourth metatarsals. Findings may be on the basis of denervation changes. Nonspecific myositis not excluded Consult Discharge Plan - Plan Referrals: NONE,PCP [Primary Care Provider] - (1) Septic joint Qualifiers: Septic arthritis location: foot Septic arthritis organism: due to unspecified organism Laterality: left Qualified Code(s): M00.9 - Pyogenic arthritis, unspecified (4) Amputation toe Qualifiers: Laterality: left Qualified Code(s): S98.132A - Complete traumatic amputation of one left lesser toe, initial encounter
[2018-09-28] MEDS ORDERED: Acetaminophen 325 MG TABLET PO PRN (21:42)
[2018-09-28] MEDS: Melatonin 3 MG TABLET PO PRN (21:53)
[2018-09-29] MEDS: Piperacillin/Tazobactam 3.375 GM in 0.9 % Sodium Chloride Mini Bag 100 ML IVPB SCH ×3 (02:04→17:06)
--- NOTE | 2018-09-29 06:17 | Electrocardiograph Report ---
[facility] [employer] 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
[2018-09-29 07:40] LABS: Hematocrit 39.6 % (37.5-50.1); Hemoglobin 12.9 g/dL (12.9-16.9); Mean Corpuscular HGB Conc 32.6 g/dL (31.6-35.5); Mean Corpuscular Hemoglobin 30.3 pg (28.0-33.3); Mean Platelet Volume 9.6 fL (9.4-12.4); Platelet Count 312 K/mcL (140-400); Red Blood Count 4.26 M/mcL (4.19-5.50); Red Cell Distribution Width 12.6 % (11.5-14.5); White Blood Count 10.7 K/mcL (4.3-11.1)
[2018-09-29 07:58] LABS: Alanine Aminotransferase 8 Units/L (7-52); Albumin 3.4 g/dL (3.5-5.7); Albumin/Globulin Ratio 1.2 (1.1-2.2); Alkaline Phosphatase 79 Units/L (34-104); Aspartate Amino Transferase 10 Units/L (13-39); BUN/Creatinine Ratio 21 (6-26); Bilirubin,Total 0.3 mg/dL (0.3-1.0); Blood Urea Nitrogen 18 mg/dL (6-20); Calcium 9.3 mg/dL (8.6-10.3); Carbon Dioxide 28 mEq/L (23-29); Chloride 104 mEq/L (98-107); Globulin 2.9 g/dL (2.4-3.5); Glucose 164 mg/dL (70-105); Osmolality,Calculated 292 (280-300); Potassium 4.1 mEq/L (3.5-5.1); Sodium 138 mEq/L (136-145); Total Protein 6.3 g/dL (6.4-8.9); eGFR For African Americans > 60 (> 60); eGFR For Non-African Americans > 60 (> 60)
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
--- NOTE | 2018-09-29 10:53 | Internal Med Progress Note ---
Hospitalist Progress Note - Encounter Date of Encounter: 09/29/18 Time of Encounter: 10:58 - Subjective Interval History: Patient seen and examined at bedside. Patient states that he feels pretty good today. He denies any pain, fever, chills. - Exam Vitals: Temp Pulse Resp BP Pulse Ox 98.3 F 59 18 112/67 95 09/29/18 06:57 09/29/18 06:57 09/29/18 06:57 09/29/18 06:57 09/29/18 09:56 Exam: Gen.: Alert and oriented 3, no acute distress Heart: Regular rate and rhythm, no murmurs, gallops Musculoskeletal: Left foot has dressing applied, dressing clean dry and intact. No surrounding cellulitis visible at this time outside of the dressing area. - Assessment and Plan (1) Sepsis Current Visit: Yes Status: Resolved Assessment and Plan: Patient initially admitted with fever, leukocytosis, mild lactic acidosis with source secondary to left foot wound resulted in osteomyelitis and septic arthritis. Blood cultures are negative to date, patient currently on broad- spectrum antibiotics. Wound and surgical cultures pending. Blood pressure stable, leukocytosis and fever have resolved. Sepsis appears resolved at this time. (2) Osteomyelitis Current Visit: Yes Status: Acute Assessment and Plan: MRI reveals evidence of osteomyelitis secondary to foot wound. Patient is postop day 1 for incision and drainage and debridement. Discussed with podiatry, patient will need repeat operation in the next day or 2 and may ultimately require amputation. Further surgical management per podiatry. Depending on further surgical findings patient may require long-term IV antibiotics. Await culture results, Consider ID consult after further surgical exploration. (3) Septic joint Current Visit: Yes Status: Acute Assessment and Plan: Secondary to infected foot wound as discussed above. (4) Type 2 diabetes mellitus Current Visit: Yes Status: Acute Assessment and Plan: Newly diagnosed. A1c 6.3, blood sugars mildly elevated. Will institute sliding scale insulin. (5) DVT prophylaxis Current Visit: Yes Status: Acute Assessment and Plan: EPCDs - Time Spent with Patient Total time spent is greater than 50% in coordination of care (as documented) at patient's floor/unit and/or counseling patient: Internal Medicine: Result - Labs CBC & Chem 7: 09/29/18 07:06 09/29/18 07:06 Labs: Short CBC 09/28/18 09/29/18 Range/Units 13:42 07:06 WBC 11.3 H 10.7 (4.3-11.1) K/mcL Hgb 13.1 12.9 (12.9-16.9) g/dL Hct 40.0 39.6 (37.5-50.1) % Plt Count 294 312 (140-400) K/mcL BMP 09/28/18 09/29/18 13:42 07:06 Sodium 137 138 Potassium 4.1 4.1 Chloride 104 104 Carbon Dioxide 26 28 BUN 9 18 Creatinine 0.72 0.84 Glucose 117 H 164 H Calcium 9.1 9.3 Liver Function 09/28/18 09/29/18 Range/Units 13:42 07:06 Total Bilirubin 0.4 0.3 (0.3-1.0) mg/dL AST 11 L 10 L (13-39) Units/L ALT 9 8 (7-52) Units/L Alkaline Phosphatase 71 79 (34-104) Units/L Albumin 3.7 3.4 L (3.5-5.7) g/dL - ABG Interpretation ABG results: PT/INR, D-dimer PT 11.2 Seconds (9.4-12.1) 09/27/18 09:38 - Impressions Impressions Foot MRI 09/27/18 06:30 IMPRESSION: There appears to be a small, shallow, open wound/ulcer along the medial aspect of the 2nd digit at the level of the DIP joint with apparent sinus tract extending slightly deeper into the soft tissues. Associated subcutaneous edema and skin thickening to the 2nd digit. Findings are compatible with cellulitis. No focal fluid collection noted on this noncontrast exam to suggest abscess. Abnormal bone marrow signal changes involving the 2nd middle and to a lesser extent distal phalanges, along with trace joint effusion to the 2nd DIP joint. Given the soft tissue abnormalities noted above, findings are highly concerning for osteomyelitis and septic arthritis. More diffuse nonspecific subcutaneous edema to the foot, especially dorsally. Mild fatty atrophy and edema to some of the intrinsic musculature of the foot, especially the intraosseous muscles about the 2nd and 3rd and to a lesser extent 4th metatarsals. Findings may be on the basis of denervation changes. Nonspecific myositis not excluded. The findings were sent to the [facility] at 9:19 am on 09/27/2018to be communicated to a licensed caregiver. D/ / 09/27/2018 09:38:42 Negro Barraza MD / mayuri Interpreting Provider: Negro Barraza MD Consult Discharge Plan - Plan Referrals: NONE,PCP [Primary Care Provider] - (1) Sepsis Qualifiers: Sepsis type: sepsis due to unspecified organism Qualified Code(s): A41.9 - Sepsis, unspecified organism (2) Osteomyelitis Qualifiers: Osteomyelitis type: other acute Osteomyelitis location: foot Laterality: left Qualified Code(s): M86.172 - Other acute osteomyelitis, left ankle and foot (3) Septic joint Qualifiers: Septic arthritis location: foot Septic arthritis organism: due to unspecified organism Laterality: left Qualified Code(s): M00.9 - Pyogenic arthritis, unspecified (4) Type 2 diabetes mellitus Qualifiers: Diabetes mellitus ferry terminal agent insulin use: without snf use Diabetes mellitus complication status: with unspecified complications Qualified Code(s): E11.8 - Type 2 diabetes mellitus with unspecified complications
[2018-09-29] MEDS ORDERED: D5% in Water 1,000 ML IVC PRN (10:57)
[2018-09-29] MEDS ORDERED: *HR* Dextrose 50 % in Water (Syg) 50 ML SYRINGE IVP PRN (10:57)
[2018-09-29] MEDS ORDERED: Dextrose Gel 15 GM/37.5 ML TUBE PO PRN ×2 (10:57)
[2018-09-29] MEDS: Insulin LISPRO 300 UNITS/3 ML VIAL SQ SCH ×3 (12:13→20:48)
[2018-09-29] MEDS: Ringers Solution, Lactated 1,000 ML IVC SCH (12:13)
[2018-09-29] MEDS: Melatonin 3 MG TABLET PO PRN (21:03)
[2018-09-29] MEDS: traMADol 50 MG TABLET PO PRN (21:03)
[2018-09-29] MEDS: Acetaminophen 325 MG TABLET PO PRN (21:04)
[2018-09-30] MEDS: Piperacillin/Tazobactam 3.375 GM in 0.9 % Sodium Chloride Mini Bag 100 ML IVPB SCH ×3 (02:28→17:49)
[2018-09-30 09:06] LABS: Hematocrit 42.1 % (37.5-50.1); Hemoglobin 13.8 g/dL (12.9-16.9); Mean Corpuscular HGB Conc 32.8 g/dL (31.6-35.5); Mean Corpuscular Hemoglobin 30.5 pg (28.0-33.3); Mean Corpuscular Volume 93.1 fL (83.0-100.0); Mean Platelet Volume 9.2 fL (9.4-12.4); Platelet Count 353 K/mcL (140-400); Red Blood Count 4.52 M/mcL (4.19-5.50); Red Cell Distribution Width 12.6 % (11.5-14.5); White Blood Count 9.9 K/mcL (4.3-11.1)
[2018-09-30 09:30] LABS: Alanine Aminotransferase 9 Units/L (7-52); Albumin 3.6 g/dL (3.5-5.7); Albumin/Globulin Ratio 1.1 (1.1-2.2); Alkaline Phosphatase 82 Units/L (34-104); Aspartate Amino Transferase 10 Units/L (13-39); BUN/Creatinine Ratio 23 (6-26); Bilirubin,Total 0.2 mg/dL (0.3-1.0); Blood Urea Nitrogen 18 mg/dL (6-20); Calcium 9.7 mg/dL (8.6-10.3); Carbon Dioxide 27 mEq/L (23-29); Chloride 104 mEq/L (98-107); Globulin 3.2 g/dL (2.4-3.5); Glucose 125 mg/dL (70-105); Osmolality,Calculated 289 (280-300); Potassium 4.2 mEq/L (3.5-5.1); Sodium 138 mEq/L (136-145); Total Protein 6.8 g/dL (6.4-8.9); eGFR For African Americans > 60 (> 60); eGFR For Non-African Americans > 60 (> 60)
[2018-09-30] MEDS: Insulin LISPRO 300 UNITS/3 ML VIAL SQ SCH ×3 (09:57→17:49)
--- NOTE | 2018-09-30 10:00 | Podiatry Progress Note ---
Date of Encounter: 09/30/18 Time of Encounter: 09:55 - Assessment and Plan (1) Amputation toe Current Visit: Yes Status: Acute Assessment: S/P Left 2nd toe incision and drainage below fascia and Left partial 2nd toe amputation at proximal interphalangeal joint with Dr. Mccloud 09/28/18 Erythema and edema noted digit #2 left foot Moderate amount of serosanginous drainage to digit #2 WBC 9.9 Proximal phalanx left #2 culture negative, #2 toe culture returned gram positive cocci, presumptively MRSA Surgical path pending Blood cultures pending Currently on IV vanc and zosyn Plan: Cleansed with 0.9 NS, covered with xeroform, 4x4 dry gauze, kerlix, and EMILIE bandage Will plan for delayed closure, possible complete amputation 2nd digit left foot with Dr. Mccloud tomorrow NPO after MN Patient to heel weight bear only, LLE, wear surgical shoe when ambulating Recommend ID for ATB management Qualifiers: Laterality: left Qualified Code(s): S98.132A - Complete traumatic amputation of one left lesser toe, initial encounter Subjective Principal diagnosis: left 2nd toe infection Interval history: Patient awake in bed. Alert and oriented x 3. S/P I&D and partial toe amputation of left foot digit #[address] Mclcoud. Discussed with patient need to return to OR tomorrow AM for delayed closure and possible complete amputation of left foot toe #2. Verbalized understanding. Denies any fevers, chills, nausea, vomiting, or diarrhea. Denies any calf pain, chest pain, or shortness of breath. Objective - Vital Signs Vital Signs: Vital Signs Temp Pulse Resp BP Pulse Ox 09/30/18 07:45 97.9 F 58 18 160/93 98 09/30/18 04:37 98.2 F 68 18 138/84 95 09/30/18 01:18 98.3 F 64 18 123/74 95 09/29/18 21:06 95 09/29/18 20:40 98.2 F 64 18 136/78 95 09/29/18 15:38 97.8 F 63 18 145/86 95 09/29/18 10:57 97.6 F 62 18 133/86 97 09/29/18 09:56 95 Intake and Output 09/29/18 09/30/18 09/30/18 23:59 07:59 15:59 Intake Total 590 / 2370 250 / 350 100 / 350 Output Total 1200 / 1350 600 / 600 Balance -610 / 1020 -350 / -250 100 / -250 Intake: IV Fluids 350 / 1050 250 / 350 100 / 350 Zosyn 3.375 GM In 0.9 % Sodium 100 / 300 100 / 100 Chloride (Mini-Bag +) 100 ML @ 25 mls/hr IVPB Q8H MEGAN Rx#: [id number] Vancocin 1,500 MG In 0.9 % 250 / 250 250 / 250 Sodium Chloride 250 ML @ 166.67 mls/hr IVPB Q12H MEGAN Rx#: [id number] Oral 240 / 1320 Output: Urine 1200 / 1350 600 / 600 Other: Meal Dinner Percent of Meal Consumed 100% # Voids 1 1 Weight 94.2 kg Blood Glucose* 118 150 Patient Weight 09/30/18 23:59 Weight 94.2 kg - Exam Exam: Exam: Constitiutional: Alert and oriented x 3. Well nourished. No acute distress noted. Irritable Vascular: 2/4 DP/PT LLE, CFT <3 sec to all digits LLE, warm to warm from tibia to toes LLE, parital amptuated digit #2 left foot, erythema and edema noted Neurologic: Diminished sensation to touch, normal plantar response Dermatologic: Open incision noted to left digit #2, erythema and edema noted, extends to forefoot, minimal improvement from yesterday. Moderate amount of serosanginous drainage noted, no foul odor noted. Musculoskeletal: 5/5 muscle strength and normal tone LLE - Lab Result Diagrams: 09/30/18 07:52 09/30/18 07:52 Labs: Abnormal lab results WBC 11.3 K/mcL (4.3-11.1) H 09/28/18 13:42 MPV 9.2 fL (9.4-12.4) L 09/30/18 07:52 12.6 K/mcL (1.6-8.9) H 09/27/18 00:14 ESR 33 mm/hr (0-10) H 09/27/18 09:38 Glucose 125 mg/dL (70-105) H 09/30/18 07:52 POC Glucose 118 mg/dL (70-99) H 09/29/18 20:38 6.3 % (-5.6) H 09/27/18 09:38 Lactic Acid 2.4 mmol/L (0.5-2.2) H 09/27/18 00:14 0.2 mg/dL (0.3-1.0) L 09/30/18 07:52 AST 10 Units/L (13-39) L 09/30/18 07:52 69 mg/L (Less than 10) H 09/27/18 09:38 6.3 g/dL (6.4-8.9) L 09/29/18 07:06 3.4 g/dL (3.5-5.7) L 09/29/18 07:06 Microbiology, Last 48 Hours 09/28/18 12:03 Wound Culture - Preliminary Left Foot Gram Positive Cocci 09/28/18 12:02 Wound Culture - Preliminary Left Foot No growth. 09/28/18 12:02 Anaerobic Culture - Preliminary Left Foot Culture is incubating. 09/28/18 12:03 Anaerobic Culture - Preliminary Left Foot Culture is incubating. Consult Discharge Plan - Plan Referrals: NONE,PCP [Primary Care Provider] -
--- NOTE | 2018-09-30 12:18 | Internal Med Progress Note ---
Hospitalist Progress Note - Encounter Date of Encounter: 09/30/18 Time of Encounter: 12:15 - Subjective Interval History: Patient seen and examined at bedside. Patient states that he feels pretty good today. He has no complaints. Denies pain, fever, chills. - Exam Vitals: Temp Pulse Resp BP Pulse Ox 97.8 F 52 18 150/90 94 09/30/18 11:34 09/30/18 11:34 09/30/18 11:34 09/30/18 11:34 09/30/18 11:34 Exam: Gen.: Alert and oriented 3, no acute distress Heart: Regular rate and rhythm, no murmurs, gallops Musculoskeletal: Left foot has dressing applied, dressing clean dry and intact. No surrounding cellulitis visible at this time outside of the dressing area. - Assessment and Plan (1) Sepsis Current Visit: Yes Status: Resolved Assessment and Plan: Resolved at this time. Secondary to osteomyelitis. Continue antibiotic therapy. (2) Osteomyelitis Current Visit: Yes Status: Acute Assessment and Plan: MRI reveals evidence of osteomyelitis secondary to foot wound. Patient is postop day 2 for incision and drainage and debridement. Per podiatry patient will require repeat operation the next day or 2. Further surgical management per podiatry, we will consult ID for antibiotic management. Continue vancomycin and Zosyn for now. Initial wound cultures are positive for gram-positive cocci. (3) Septic joint Current Visit: Yes Status: Acute Assessment and Plan: Secondary to infected foot wound as discussed above. (4) Type 2 diabetes mellitus Current Visit: Yes Status: Acute Assessment and Plan: Blood sugar under good control. Continue sliding scale insulin. (5) DVT prophylaxis Current Visit: Yes Status: Acute Assessment and Plan: EPCDs - Time Spent with Patient Total time spent is greater than 50% in coordination of care (as documented) at patient's floor/unit and/or counseling patient: Internal Medicine: Result - Labs CBC & Chem 7: 09/30/18 07:52 09/30/18 07:52 Labs: Short CBC 09/30/18 Range/Units 07:52 WBC 9.9 (4.3-11.1) K/mcL Hgb 13.8 (12.9-16.9) g/dL Hct 42.1 (37.5-50.1) % Plt Count 353 (140-400) K/mcL BMP 09/30/18 07:52 Sodium 138 Potassium 4.2 Chloride 104 Carbon Dioxide 27 BUN 18 Creatinine 0.80 Glucose 125 H Calcium 9.7 Liver Function 09/30/18 Range/Units 07:52 Total Bilirubin 0.2 L (0.3-1.0) mg/dL AST 10 L (13-39) Units/L ALT 9 (7-52) Units/L Alkaline Phosphatase 82 (34-104) Units/L Albumin 3.6 (3.5-5.7) g/dL - ABG Interpretation ABG results: PT/INR, D-dimer PT 11.2 Seconds (9.4-12.1) 09/27/18 09:38 Consult Discharge Plan - Plan Referrals: NONE,PCP [Primary Care Provider] - __ (1) Sepsis Qualifiers: Sepsis type: sepsis due to unspecified organism Qualified Code(s): A41.9 - Sepsis, unspecified organism (2) Osteomyelitis Qualifiers: Osteomyelitis type: other acute Osteomyelitis location: foot Laterality: left Qualified Code(s): M86.172 - Other acute osteomyelitis, left ankle and foot (3) Septic joint Qualifiers: Septic arthritis location: foot Septic arthritis organism: due to unspecified organism Laterality: left Qualified Code(s): M00.9 - Pyogenic arthritis, unspecified (4) Type 2 diabetes mellitus Qualifiers: 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
--- NOTE | 2018-09-30 15:44 | Infectious Disease Consult ---
Infectious Disease-Consult - Encounter Date/Time Date of Encounter: 09/30/18 Time of Encounter: 15:37 - Data of Consult Patient: new to practice Reason for consult: Osteomyelitis Consult date: 09/30/18 Requesting Physician: Go Morgan, Primary Care Provider: PCP NONE - HPI HPI: Patient is a 48-year-old gentleman who presented to [facility] on 09/27/2018 with pain in his left foot for about 3 weeks. We are consulted on 09/30/2018 for osteomyelitis. Patient is a 48-year-old gentleman who has no past medical history he was not taking any medications with questionable social history but denies any drugs or EtOH use and he does smoke cigarettes who apparently now lives alone but was to move back to [place] to attend school who is not sexually active but he prefers sex with woman. Has no animals at home. States that he came in with left foot pain that has been going on for about 3 weeks prior to admission. Patient apparently because of his work and long hours he developed a blister on the second toe of the left foot and was treating at home with appointment. Patient was getting progressively worse so he decided to come to the emergency department for evaluation. Since admission, MAXIMUM TEMPERATURE was 100.6 Fahrenheit, no tachycardia or tachypnea. Presenting labs revealed a WBC of 15.9 with neutrophilic predominance at 80%. No bands. BUN/Cr 14/0.78. Lactic acid was within normal limits. A urinalysis was obtained and came back negative. Patient had an MRI of the foot which read small shallow open wound/ulcer along the medial aspect of the second digit at the level of the DIP joint with apparent sinus tract extending slightly deeper into the soft tissue. Findings are compatible cellulitis. No focal fluid collection noted. Abnormal bone marrow signal changes involving the second middle and to a lesser extent distal phalanges. Findings are highly concerning for osteomyelitis and septic arthritis. Patient was taken to surgery 09/28/[address] Wade where he underwent a left second toe incision and drainage below fascia and left partial second toe amputation at proximal interphalangeal joint. Biopsy from surgery revealed acute osteomyelitis. Intra-Op cultures revealing gram-positive cocci final ID is pending. Patient is currently on vancomycin and Zosyn. We were asked to evaluate the patient and make further recommendations. Patient laying in bed and appears comfortable. No acute distress. Denies any headache. No visual changes. No chest pain shortness of breath. No cough no sputum production. No nausea no vomiting no diarrhea or constipation. No urinary symptoms. - ROS Review of Systems: 10 point review of systems done, negative other for what mentioned in history of present illness - Results CBC & Chem 7: 09/30/18 07:52 09/30/18 07:52 - Exam Vitals: Temp Pulse Resp BP Pulse Ox 97.8 F 52 18 150/90 94 09/30/18 11:34 09/30/18 11:34 09/30/18 11:34 09/30/18 11:34 09/30/18 11:34 Exam: GENERAL: Laying in bed, appears comfortable. HEAD: Normocephalic atraumatic EYES: PERRLA, EOMI, no conjunctival hemorrhage, sclera anicteric ENT: Mucous membranes moist, no oral thrush NECK: Supple. No meningeal signs. No masses LUNGS: Chest expanding symmetrically. Lungs sounds audible both lung babin. No wheezing, no rhonchi CV: RRR, S1S2, ABDOMEN: Soft, nontender, nondistended. Bowel sounds audible BACK: No CVA tenderness. Normal inspection. No tenderness over the spine EXTREMITY: Adequate perfusion. No joint effusion. Left foot surgically wrapped. I did not unwrap it. SKIN: Normal color. No rash. NEURO: Awake alert oriented 3. No obvious focal deficit PSYCH: Calm and appropriate. No agitation. No Known Home Drugs 09/29/18 [History] Allergy/AdvReac Type Severity Reaction Status Date / Time No Known Allergies Allergy Verified 09/29/18 07:28 - Assessment and Plan (1) Sepsis Current Visit: Yes Status: Resolved Secondary to cellulitis, septic arthritis and osteomyelitis of the second toe of the left foot Qualifiers: Sepsis type: sepsis due to unspecified organism Qualified Code(s): A41.9 - Sepsis, unspecified organism SNOMED Code(s): 74142070 (2) Osteomyelitis Current Visit: Yes Status: Acute MRI of the foot 09/27/2018: Abnormal marrow signal changes involving the second middle and to a lesser extent distal phalanges of the left foot Status post I&D and partial amputation of the second toe. Intra-Op pathology positive for acute osteomyelitis Cultures positive for gram-positive cocci final ID pending Patient currently on vancomycin and Zosyn We will continue current antibiotic regimen with vancomycin and Zosyn until cultures finalize We will discuss with podiatry to see if they believe they have all the infected tissue Goal vancomycin trough around 15 Monitor labs and for drug toxicity Qualifiers: Osteomyelitis type: other acute Osteomyelitis location: foot Laterality: left Qualified Code(s): M86.172 - Other acute osteomyelitis, left ankle and foot SNOMED Code(s): 94826671 (3) Septic joint Current Visit: Yes Status: Acute Left second toe Status post I&D and amputation of the second toe at the proximal interphalangeal joint 09/28/2018 Cultures so far growing positive cocci Continue vancomycin Goal vancomycin trough around 15 Will tailor antibiotics based on the culture final ID Qualifiers: Septic arthritis location: foot Septic arthritis organism: due to unspecif ied organism Laterality: left Qualified Code(s): M00.9 - Pyogenic arthritis, unspecified SNOMED Code(s): 079813530 Past Med Surg Social Fam HX - Past Medical History Medical history: no medical history Additional medical history: back pain Psychiatric history: no psych history - Past Surgical History Surgical History: cholecystectomy, tonsillectomy Additional surgical history: lumbar discectomy (2005), broken toes - Social History Smoking Status: Current every day smoker Packs per day: half pack Smokeless Tobacco Status: No Alcohol use: none Drug use: none - Family History Father Living Status: Age at : 36 Cause of : cirrhosis Mother Living Status: Age at : 53 Cause of : brain ancer Hx Family Cancer: Yes (brain cancer) Consult Discharge Plan - Plan Referrals: NONE,PCP [Primary Care Provider] -
[2018-09-30] MEDS: Melatonin 3 MG TABLET PO PRN (21:05)
[2018-09-30] MEDS: Acetaminophen 325 MG TABLET PO PRN (21:05)
[2018-09-30] MEDS: traMADol 50 MG TABLET PO PRN (21:05)
--- NOTE | 2018-09-30 22:11 | Anesthesia Evaluation PreOp ---
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 History: Other (back pain) Other Medical History: Other (osteomyelitis, sepsis) Anesthesia History: No Prior Anesthetic Complications, Past Anesthesia (cholecystectomy, tonsillectomy, lumbar discectomy (2005), left foot I&D 09-28-18) Alcohol Use: none Drug use: none Medications and Allergies No Known Home Drugs 09/29/18 [History] Allergy/AdvReac Type Severity Reaction Status Date / Time No Known Allergies Allergy Verified 09/29/18 07:28 - Meds/Allergy Pre-op Review Medications Reviewed: Yes Allergies Reviewed: Yes Beta Blockers on Current Med List: No Anesthesia Results - Labs 09/30/18 07:52 09/30/18 07:52 - Imaging EKG: report reviewed, image reviewed (Sinus rhythm Abnormal T, consider ischemia, lateral leads Baseline wander in lead(s) V1) Anesthesia Exam Last Vital Signs Temp 98.6 F 09/30/18 21:00 Pulse 62 09/30/18 21:00 Resp 16 09/30/18 21:00 BP 162/97 09/30/18 21:00 Pulse Ox 94 09/30/18 21:00 - HEENT Pupil (Motor): Pupils equal, EOMI Mallampati: II Oral Opening: Greater than 3 - SUPERCHARGER MECHANIC LOC: Oriented - Cardiac Rhythm: Regular - Pulmonary Breath Sounds: bilateral Clear Anesthesia Assess/Plan ASA Score: 2 Level of consciousness: Cooperative Anesthetic Plan: MAC Monitoring Plan: Standard Monitors Recovery Plan: PACU <Maria D Wilcox - Last Filed: 10/01/18 09:31> Date of Encounter: 10/01/18 Time of Encounter: 09:31 Anesthesia Results - Labs 10/01/18 06:15 10/01/18 06:15 Anesthesia Exam Vital Signs/O2 Sat, Most Current Temp Pulse Resp BP Pulse Ox 97.7 F 55 18 116/62 96 10/01/18 07:25 10/01/18 07:25 10/01/18 07:25 10/01/18 07:25 10/01/18 07:50 Weight: 94kg NPO (# of Hours): >8 - HEENT Teeth: Missing (lower) - SUPERCHARGER MECHANIC SUPERCHARGER MECHANIC Motor: Normal RUE, Normal LUE, Normal RLE, Normal LLE, Normal Face - Pulmonary Breath Sounds: bilateral Clear Anesthesia Assess/Plan Anesthetic Plan: General
[2018-10-01] MEDS: Insulin LISPRO 300 UNITS/3 ML VIAL SQ SCH ×3 (01:53→12:40)
[2018-10-01] MEDS: Ringers Solution, Lactated 1,000 ML IVC SCH ×2 (01:53→02:37)
[2018-10-01] MEDS: Piperacillin/Tazobactam 3.375 GM in 0.9 % Sodium Chloride Mini Bag 100 ML IVPB SCH ×2 (02:36→09:30)
[2018-10-01 06:25] LABS: Hematocrit 42.7 % (37.5-50.1); Hemoglobin 14.2 g/dL (12.9-16.9); Mean Corpuscular HGB Conc 33.3 g/dL (31.6-35.5); Mean Corpuscular Hemoglobin 30.6 pg (28.0-33.3); Platelet Count 357 K/mcL (140-400); Red Blood Count 4.64 M/mcL (4.19-5.50); Red Cell Distribution Width 12.6 % (11.5-14.5); White Blood Count 11.6 K/mcL (4.3-11.1)
[2018-10-01 06:45] LABS: Alanine Aminotransferase 10 Units/L (7-52); Albumin 3.8 g/dL (3.5-5.7); Albumin/Globulin Ratio 1.2 (1.1-2.2); Alkaline Phosphatase 77 Units/L (34-104); Aspartate Amino Transferase 12 Units/L (13-39); BUN/Creatinine Ratio 21 (6-26); Bilirubin,Total 0.2 mg/dL (0.3-1.0); Blood Urea Nitrogen 17 mg/dL (6-20); Calcium 9.7 mg/dL (8.6-10.3); Carbon Dioxide 27 mEq/L (23-29); Chloride 103 mEq/L (98-107); Globulin 3.2 g/dL (2.4-3.5); Glucose 120 mg/dL (70-105); Osmolality,Calculated 285 (280-300); Potassium 4.4 mEq/L (3.5-5.1); Sodium 136 mEq/L (136-145); eGFR For African Americans > 60 (> 60); eGFR For Non-African Americans > 60 (> 60)
[2018-10-01 07:26] VITALS: BP 116/62
--- NOTE | 2018-10-01 07:52 | Event Note ---
Date of Encounter: 10/01/18 Time of Encounter: 07:51 Nature of the procedure, risks versus benefits, potential complications, consequences of surgery, and condition discussed. All questions and concerns addressed. Consent signed and placed in chart. Informed by nurse patient is planning on leaving AMA after surgery.
[2018-10-01] MEDS ORDERED: Vancomycin 1,000 MG VIAL ONE (10:34)
[2018-10-01] MEDS ORDERED: Propofol 500 MG/50 ML INFUS..BTL ONE (10:39)
[2018-10-01] MEDS ORDERED: *HR* Midazolam HCl 2 MG/2 ML VIAL ONE (11:02)
[2018-10-01] MEDS ORDERED: *HR* FentaNYL (PF) 100 MCG/2 ML VIAL ONE (11:02)
--- NOTE | 2018-10-01 11:45 | Internal Med Progress Note ---
Hospitalist Progress Note - Encounter Date of Encounter: 10/01/18 Time of Encounter: 11:43 - Subjective Interval History: Patient seen and examined at bedside. Patient states that he feels fine today. He states that he is wanting to leave but understands that he needs surgery. Denies fever or chills. - Exam Vitals: Temp Pulse Resp BP Pulse Ox 97.7 F 55 18 116/62 96 10/01/18 07:25 10/01/18 07:25 10/01/18 07:25 10/01/18 07:25 10/01/18 07:50 Exam: Gen.: Alert and oriented 3, no acute distress Heart: Regular rate and rhythm, no murmurs, gallops Musculoskeletal: Left foot has dressing applied, dressing clean dry and intact. No surrounding cellulitis visible at this time outside of the dressing area. - Assessment and Plan (1) Sepsis Current Visit: Yes Status: Resolved Assessment and Plan: Resolved at this time. Secondary to osteomyelitis, cultures positive for MRSA and group B strep. Continue antibiotic therapy. Appreciate ID recommendations. (2) Osteomyelitis Current Visit: Yes Status: Acute Assessment and Plan: MRI reveals evidence of osteomyelitis secondary to foot wound. Patient is postop day 3 for incision and drainage and debridement. Per podiatry patient will require repeat operation today. Further surgical management per podiatry, ID following. We will cultures positive for MRSA and group B strep, further antibiotic recommendations per ID. (3) Septic joint Current Visit: Yes Status: Acute Assessment and Plan: Secondary to infected foot wound as discussed above. (4) Type 2 diabetes mellitus Current Visit: Yes Status: Acute Assessment and Plan: Blood sugar under good control. Continue sliding scale insulin. (5) DVT prophylaxis Current Visit: Yes Status: Acute Assessment and Plan: EPCDs - Time Spent with Patient Total time spent is greater than 50% in coordination of care (as documented) at patient's floor/unit and/or counseling patient: Internal Medicine: Result - Labs CBC & Chem 7: 10/01/18 06:15 10/01/18 06:15 Labs: Short CBC 10/01/18 Range/Units 06:15 WBC 11.6 H (4.3-11.1) K/mcL Hgb 14.2 (12.9-16.9) g/dL Hct 42.7 (37.5-50.1) % Plt Count 357 (140-400) K/mcL BMP 10/01/18 06:15 Sodium 136 Potassium 4.4 Chloride 103 Carbon Dioxide 27 BUN 17 Creatinine 0.81 Glucose 120 H Calcium 9.7 Liver Function 10/01/18 Range/Units 06:15 Total Bilirubin 0.2 L (0.3-1.0) mg/dL AST 12 L (13-39) Units/L ALT 10 (7-52) Units/L Alkaline Phosphatase 77 (34-104) Units/L Albumin 3.8 (3.5-5.7) g/dL - ABG Interpretation ABG results: PT/INR, D-dimer PT 11.2 Seconds (9.4-12.1) 09/27/18 09:38 Consult Discharge Plan - Plan Referrals: NONE,PCP [Primary Care Provider] - (1) Sepsis Qualifiers: Sepsis type: sepsis due to unspecified organism Qualified Code(s): A41.9 - Sepsis, unspecified organism (2) Osteomyelitis Qualifiers: Osteomyelitis type: other acute Osteomyelitis location: foot Laterality: left Qualified Code(s): M86.172 - Other acute osteomyelitis, left ankle and foot (3) Septic joint Qualifiers: Septic arthritis location: foot Septic arthritis organism: due to unspecified organism Laterality: left Qualified Code(s): M00.9 - Pyogenic arthritis, unspecified (4) Type 2 diabetes mellitus Qualifiers: Diabetes mellitus manager terminal insulin use: without usp use Diabetes mellitus complication status: with unspecified complications Qualified Code(s): E11.8 - Type 2 diabetes mellitus with unspecified complications
--- NOTE | 2018-10-01 11:48 | Anesthesia Evaluation Post Op ---
Date of Encounter: 10/01/18 Time of Encounter: 11:47 - Vital Signs Vital Signs: Vital Signs/O2 Sat, Most Current Temp Pulse Resp BP Pulse Ox 97.7 F 55 18 116/62 96 10/01/18 07:25 10/01/18 07:25 10/01/18 07:25 10/01/18 07:25 10/01/18 07:50 - Lungs Lungs: Clear Ascult./Percussion - Airway Airway: Non-obstructed - Cardiovascular Regular Rate - Mental Status Mental Status: Alert & Oriented, Answers Appropriately - Pain Pain Scale: 0 Pain Scale used: Numeric (1 - 10) - Nausea Vomiting Nausea Vomiting: Not Present - Hydration Hydration: NPO - Discharge PostOp Status: Transfer Patient to floor
--- NOTE | 2018-10-01 11:53 | Orthopedic Operative Note ---
Date of procedure: 10/01/18 Pre-op diagnosis: left 2nd toe wound infection Post-op diagnosis: same Procedure: 10/01/18 11:45 1. Debridement and irrigation left 2nd toe wound with delayed primary closure of surgical wound Implants: None Complications: None Anesthesia: MAC, local Surgeon: Dhruv Mccloud Was there an assistant accounting manager present: No Estimated blood loss (cc): 1 Tourniquet Time (Minutes): 0 Specimen: None Condition: stable Disposition: floor Procedure in Detail: 10/01/18 11:46 INDICATIONS AND CONSENT Jaswant Zapien is a 48-year-old male who initially presented with left second toe wound infection that started as a non healing blister. MRI showed evidence of osteomyelitis at the middle and distal phalanx of the toe. Given his clinical picture of localized infection, nonviable soft tissue, and MRI evidence of bone infection, surgical intervention was warranted for infection source control and he underwent initial incision and drainage with partial 2nd toe amputation. Wound cultures grew MRSA and proximal phalanx bone cultures had no growth. The wound was left open to allow the soft tissue to stabilize prior to definitive closure to be performed at a later date. We discussed the above procedures in detail. This included a discussion on the indications, contraindications, and possible complications including but not limited to: infection, non-healing wound, pain, swelling, bleeding, blood clots, heart complications, nerve injury, tendon injury, vascular injury, loss of limb, loss of life, and need for further surgery. We also reviewed the expected post operative course, including a discussion on the partial-weightbearing status after this procedure. He related understanding of our discussion regarding this surgery. All questions were answered to his satisfaction, and a proper written informed consent was obtained, signed, and placed in the chart. No guarantees were given, stated or implied, as to the outcome of this procedure. PROCEDURE IN DETAIL The patient was seen in the pre-operative holding area by Anesthesia, where he was consented for MAC with local block. The patient was then brought back to the operative suite and placed on the operating room table in the supine position. A sign-in was performed. MAC was then started per Anesthesia protocol. Next, the left lower leg was scrubbed, prepped, and draped in the usual aseptic manner. A Bradford Time-Out was performed, and all parties in the room agreed. A total of 5 mL of 1% lidocaine plain was injected to the left second toe. The retention suture was removed. Any remaining non viable soft tissue was sharply excised using a rongeur and 15 blade. It was decided to salvage the proximal phalanx and not remove the entire 2nd toe as the soft tissue and bone appeared viable and healthy. The remaining proximal phalanx was contoured to allow for limited tension at the surgical wound using a rongeur. The wound was then irrigated with 3 L of normal saline infused with 1g Vancomycin powder using cysto tubing. The extensor digitorum longus and flexor digitorum longus tendons were tenodesed and the subcutaneous tissue was re-approximated using 4-0 Vicryl. The skin was re-approximated using 3-0 Nylon. A total of 5 mL of 0.5% Marcaine plain was then injected to the left forefoot. The wound was then dressed with adaptic, 4 x 4's, Kerlix roll, and EMILIE wrap. Capillary refill time of the toes on the left foot was also noted to be brisk at this time. A sign-out was performed. The patient tolerated anesthesia and the procedure well, and was transferred to PAC-U with vital signs stable and vascular status intact to the left lower extremity. Needle and sponge counts were correct X 2 at the end of the case. Dr. Dhruv Mccloud was present, scrubbed, and participated in all vital aspects of the procedure. After a brief stay in PAC-U, the patient will be omitted back to the floor for continued monitoring. He can likely discharge with PO antibiotics to cover the MRSA from the wound culture of the amputated toe. The remaining soft tissue and bone at the 2nd toe appears viable and healthy.
[2018-10-01] MEDS ORDERED: Naloxone 0.4 MG/ML INJ IVP PRN (12:08)
[2018-10-01] MEDS ORDERED: Acetaminophen 325 MG TABLET PO PRN (12:08)
[2018-10-01] MEDS ORDERED: Ringers Solution, Lactated 1,000 ML IVC SCH (12:08)
[2018-10-01] MEDS ORDERED: *HR* Dextrose 50 % in Water (Syg) 50 ML SYRINGE IVP PRN (12:08)
[2018-10-01] MEDS ORDERED: D5% in Water 1,000 ML IVC PRN (12:08)
[2018-10-01] MEDS ORDERED: traMADol 50 MG TABLET PO PRN (12:08)
[2018-10-01] MEDS ORDERED: Dextrose Gel 15 GM/37.5 ML TUBE PO PRN ×2 (12:08)
[2018-10-01] MEDS ORDERED: Melatonin 3 MG TABLET PO PRN (12:08)
--- NOTE | 2018-10-01 13:40 | Infectious Disease Progress No ---
ID Progress Note Date of Encounter: 10/01/18 Time of Encounter: 13:37 - Subjective Subjective: Patient seen and examined. No acute events noted overnight. Status post repeat I&D with closure of the wound 10/01/[address] Wade. Denies fevers, chills, or rigors. Denies chest pain, shortness of breath, or cough. Denies nausea, vomiting, diarrhea, or constipation. Denies abdominal pain or urinary complaints. Last BM two days ago. Appetite is good. Denies oral thrush or skin lesions. States he wants to go home. - Objective CBC & Chem 7: 10/01/18 06:15 10/01/18 06:15 - Exam Vitals: Temp Pulse Resp BP Pulse Ox 97.7 F 55 18 116/62 96 10/01/18 07:25 10/01/18 07:25 10/01/18 07:25 10/01/18 07:25 10/01/18 07:50 Exam: Head: Atraumatic, normal inspection, normocephalic. Eye: EOMI, PERRLA, no scleral icterus noted. ENT: Mucous membranes moist. No odontogenic infection noted. Neck: Normal inspection, no meningismus. Respiratory: Clear to auscultation. No rales, respiratory distress, rhonchi, or wheezes noted. Cardiovascular: Regular rate and rhythm, S1 and S2 audible. No murmurs, rubs, or gallops. GI: Soft, nondistended, normal bowel sounds. Extremities:No joint swelling, pedal edema, or tenderness noted. Right foot post-op dressing C/D/I. + M/S to the distal extremity. Back: Normal inspection. No vertebral tenderness noted. Neurological: Alert, oriented 3, no focal deficits. Psychiatric: normal affect, normal mood. Skin: Dry, intact, warm. Normal color. No rashes. - Assessment and Plan (1) Sepsis Status: Resolved The patient had two SIRS criteria on admission. Likely secondary to right 2nd toe osteomyelitis. Improved. WBC normal. Fevers resolved. Blood cultures drawn 09/27/18 are NGTD x 2 sets. Qualifiers: Sepsis type: sepsis due to unspecified organism Qualified Code(s): A41.9 - Sepsis, unspecified organism SNOMED Code(s): 84376074 (2) Osteomyelitis Status: Acute MRI of the foot 09/27/2018: Abnormal marrow signal changes involving the second middle and to a lesser extent distal phalanges of the left foot. Status post I&D and partial amputation of the second toe. Intra-Op pathology of the amputated portion of the toe positive for acute osteomyelitis. Cultures of the proximal toe negative. Causative organism: MRSA and GBS. Likely secondary to blister on the toe. Currently on vancomycin and Zosyn Qualifiers: Osteomyelitis type: other acute Osteomyelitis location: foot Laterality: left Qualified Code(s): M86.172 - Other acute osteomyelitis, left ankle and foot SNOMED Code(s): 14412041 (3) Septic joint Status: Acute Left second toe. Status post I&D and amputation of the second toe at the proximal interphalangeal joint 09/28/2018. Cultures positive for MRSA and GBS. Currently on Vanc and Zosyn. Qualifiers: Septic arthritis location: foot Septic arthritis organism: due to unspe cified organism Laterality: left Qualified Code(s): M00.9 - Pyogenic arthritis, unspecified SNOMED Code(s): 534161052 (4) Infected blister of second toe of left foot Status: Acute Qualifiers: Encounter type: subsequent encounter Qualified Code(s): S90.425D - Blister (nonthermal), left lesser toe(s), subsequent encounter; L08.9 - Local infection of the skin and subcutaneous tissue, unspecified SNOMED Code(s): 63129694 - Recommendations Recommendations: Await blood cultures to finalize. Wound care and activity per the primary team. Discontinue Zosyn. Continue Vancomycin IV. Pharmacy to dose. Goal trough ~15. Duration of treatment depends on the clinical picture. Discussed with Podiatry who feels that all of the infected bone was removed. Proximal bone cultures negative. Can transition to oral Bactrim and Keflex to complete a 14 day post-op course. Monitor renal function and for drug toxicity and dose-adjust antibiotics. Consult Discharge Plan - Plan Instructions: Cephalexin (By mouth), Sulfamethoxazole/Trimethoprim (By mouth), Hydrocodone/Acetaminophen (By mouth) Additional Instructions: Please follow-up with your PCP within one week. Please follow-up with podiatry as scheduled. Please take your antibiotic until completed. Please return for any new or worsening symptoms. Referrals: Dhruv Mccloud, DPM [Partnered Physician] - (per podiatry recs) NONE,PCP [Primary Care Provider] - (1 week= Please call [phone] to find a provider line) Prescriptions: Sulfamethoxazole/Trimeth DS [Bactrim DS] 1 each PO BID #28 tablet cephALEXin [Keflex] 500 mg PO TID #42 capsule HYDROcodone/Acet 5/325 mg [Errol 5-325 mg] 1 tab PO Q6H PRN 5 Days #20 tab PRN Reason: Pain - Attending Attestation I have personally performed a face to face evaluation on this patient. I have reviewed and agree with the care plan. History and Exam by me shows: Patient seen and examined. Clinically doing much better. Believe all the osteomyelitis has been resected by podiatry. Based on the culture results we will decide to discharge the patient on oral antibiotics. Discharge on Bactrim and Keflex [address]. Discussed with Dr. Bond
--- NOTE | 2018-10-01 13:57 | Discharge Summary ---
- NOTES TO OUTPATIENT PROVIDER Notes to Outpatient Provider: HgbA1c 6.3 Orders not resulted at time of discharge: Pending orders 09/26/18 23:56 Culture,Blood [BC] Stat 09/28/18 12:02 Culture,Anaerobic [RM] Routine 09/28/18 12:03 Culture,Anaerobic [RM] Routine 10/02/18 04:00 CMP [Comprehensive Metabolic Panel] AM 0400 Complete Blood Count w/o Diff [HEME] AM 0400 Date of Encounter: 10/01/18 Time of Encounter: 13:54 - Discharge Diagnosis (1) Sepsis Priority: Primary Status: Resolved Qualifiers: Sepsis type: sepsis due to unspecified organism Qualified Code(s): A41.9 - Sepsis, unspecified organism (2) Osteomyelitis Priority: Primary Status: Acute Qualifiers: Osteomyelitis type: other acute Osteomyelitis location: foot Laterality: left Qualified Code(s): M86.172 - Other acute osteomyelitis, left ankle and foot (3) Septic joint Priority: Primary Status: Acute Qualifiers: Septic arthritis location: foot Septic arthritis organism: due to unspecified organism Laterality: left Qualified Code(s): M00.9 - Pyogenic arthritis, unspecified (4) Type 2 diabetes mellitus Priority: Secondary Status: Acute Qualifiers: Diabetes mellitus residential insulin use: without middle or intermediate school principal use Diabetes mellitus complication status: with unspecified complications Qualified Code(s): E11.8 - Type 2 diabetes mellitus with unspecified complications Hospital course: Mr. Zapien is a 48 year old male with no significant medical history presented with a left foot wound. He was evaluated by podiatry who underwent primary incision and drainage. At this time infection was found to extend to the bone and within the joint space. He is placed on IV antibiotics. On postop day 3 patient was taken back to the OR for second toe amputation. According to the operative note healthy viable bone was noted to be at the margin. Cultures were positive for MRSA and group B strep. Patient was seen by infectious disease who recommended by mouth antibiotics with Bactrim and Keflex for 14 days of discharge. Patient will be discharge home in stable condition. Discharge discussed with: patient - Time Spent with Patient Total time spent providing and/or coordinating discharge services: Time spent: Greater than 30 minutes (40 minutes) - Discharge Medications Prescriptions: New Sulfamethoxazole/Trimeth DS [Bactrim DS] 1 each PO BID #28 tablet cephALEXin [Keflex] 500 mg PO TID #42 capsule HYDROcodone/Acet 5/325 mg [[place] 5-325 mg] 1 tab PO Q6H PRN 5 Days #20 tab PRN Reason: Pain Home Medications: HYDROcodone/Acet 5/325 mg [[place] 5-325 mg] 1 tab PO Q6H PRN 5 Days #20 tab 10/01/18 [Rx] Sulfamethoxazole/Trimeth DS [Bactrim DS] 1 each PO BID #28 tablet 10/01/18 [Rx] cephALEXin [Keflex] 500 mg PO TID #42 capsule 10/01/18 [Rx] Allergies/Adverse Reactions: Allergy/AdvReac Type Severity Reaction Status Date / Time No Known Allergies Allergy Verified 09/29/18 07:28 Date of admission: 09/30/18 16:59 Primary care physician: PCP NONE Consults: 09/27/18 01:46 Consult to Podiatry [CONS] Stat Consulting Provider: Podiatry [facility] Reason for Consult: 2nd left tow septic joint Time Notified: 01:47 Call Completed: Yes 09/27/18 04:03 Consult to Production Coordinator [CONS] Routine Reason for SW Consult: financial concerns 09/30/18 12:14 Consult to Infectious Diseases [CONS] Routine Consulting Provider: Infectious Disease [facility] Reason for Consult: Osteomyletis Call Completed: Yes Discharging clinician: Go Morgan Anticipated date of discharge: 10/01/18 - Constitutional Vitals: Temp Pulse Resp BP Pulse Ox 97.7 F 55 18 116/62 96 10/01/18 07:25 10/01/18 07:25 10/01/18 07:25 10/01/18 07:25 10/01/18 07:50 General appearance: Present: cooperative, A&O X 3, pleasant, no acute distress, answers questions appropriately Exam: . - Cardiovascular Cardiovascular exam: Present: RRR. Absent: gallop, rubs, systolic murmur - Extremities Exam Additional comments: Left foot has dressing in place that is clean dry and intact. - Patient Status Disposition: Home, Self-Care Condition: Good Functional capacity at discharge: independent ambulation Overall status at discharge: patient is progressing back to baseline - Discharge Instructions Follow Up With: NONE,PCP [Primary Care Provider] - (1 week) Dhruv Mccloud DPM [Partnered Physician] - (per podiatry recs) Additional Instructions: Please follow-up with your PCP within one week. Please follow-up with podiatry as scheduled. Please take your antibiotic until completed. Please return for any new or worsening symptoms. - Diet and Activity Activity: increase activity as tolerated Diet: diabetic diet
[2018-10-01] MEDS ORDERED: Aminoglycoside Consult 1 EACH MC ONE (14:47)
[2018-10-01] MEDS ORDERED: Insulin LISPRO 300 UNITS/3 ML VIAL SQ SCH ×2 (16:30→21:00)
[2018-10-01] MEDS ORDERED: Piperacillin/Tazobactam 3.375 GM in 0.9 % Sodium Chloride Mini Bag 100 ML IVPB SCH (17:00)
== END 2018-10-01 14:48 | disposition home or self-care (01) | DRG 854 ==
LOC: 2ANU 23:42 → EMEROOARM 23:42 → SUATTDRO 09-27 02:34 → 2ANU 09-27 03:25
PROVIDERS: ADMIT Family Medicine; ATTEND Internal Medicine